=== PATIENT | female | born 1965 | race Caucasian/White ===

== ENCOUNTER → 2020-06-08 | Outpatient (CLI) | payer OTHER ==
--- NOTE | 2020-06-08 16:41 | RAD ---
EXAM: Lumbar spine, 2 views. HISTORY: Pain. COMPARISON: None. FINDINGS: 2 views of the lumbar spine are obtained. There is grade 1 anterolisthesis of L4 on L5 and L5 on S1. There is facet arthropathy at the mid lower lumbar levels. There is no fracture. IMPRESSION: Mild degenerative change predominantly at the mid and lower lumbar levels. No acute osseo us finding. Electronically signed by: Edith Quesada MD (06/08/2020 4:38 PM) [email or web address]
--- NOTE | 2020-06-08 17:01 | RAD ---
EXAM: Chest, 2 views. HISTORY: Cigarette smoking. COMPARISON: None. FINDINGS: 2 views of chest are obtained. There is no infiltrate, pleural effusion or pneumothorax. Th e heart is normal in size. IMPRESSION: No acute pulmonary finding. Electronically signed by: Edith Quesada MD (06/08/2020 4:58 PM) [email or web address]
== END ==
LOC: RAD 13:40
PROVIDERS: ATTEND Family Medicine
DX: M47.816 Spondylosis without myelopathy or radiculopathy, lumbar region (principal); J44.9 Chronic obstructive pulmonary disease, unspecified; M54.9 Dorsalgia, unspecified; F98.8 Other specified behavioral and emotional disorders with onset usually occurring in childhood and adolescence; E11.9 Type 2 diabetes mellitus without complications
CPT/HCPCS: 71046; 72100